=== PATIENT | female | born 1995 | race Caucasian/White ===

== ENCOUNTER 2022-02-06 16:41 | Observation (INO) ==
[2022-02-06 18:19] LABS: Basophils # 0.1 K/mcL (0.0-0.2); Basophils % 0.8 %; Eosinophils # 0.2 K/mcL (0.0-0.6); Eosinophils % 1.3 %; Hematocrit 48.5 % (35.3-44.9); Hemoglobin 16.1 g/dL (11.5-15.4); Immature Granulocytes % 0.3 % (0-4); Lymphocytes # 2.7 K/mcL (0.6-4.6); Lymphocytes % 18.7 %; Mean Corpuscular HGB Conc 33.2 g/dL (31.6-35.5); Mean Corpuscular Hemoglobin 29.5 pg (28.0-33.3); Mean Platelet Volume 9.6 fL (9.4-12.4); Monocytes # 0.7 K/mcL (0.0-1.3); Monocytes % 4.9 %; Neutrophils # 10.6 K/mcL (1.6-8.9); Platelet Count 280 K/mcL (140-400); Red Blood Count 5.45 M/mcL (3.82-4.97); White Blood Count 14.4 K/mcL (4.3-11.1)
[2022-02-06 18:23] LABS: Bacteria,Urine Few per hpf (None-Few); Bilirubin,Urine Negative (Negative); Blood,Urine Large (Negative); Clarity,Urine Clear (Clear); Color,Urine Light-Yellow (Yellow); Glucose,Urine (UA) Normal (Normal); Ketones,Urine Negative (Negative); Leukocyte Esterase,Urine Negative (Negative); Nitrite,Urine Positive (Negative); PH,Urine 6.5 pH Units (5.0-8.0); Protein,Urine Negative (Neg-Trace); RBC,Urine 30-50 per hpf (0-3); Specific Gravity,Urine 1.016 (1.010-1.025); Squamous Epithelial Cell,Urine Few per hpf (None-Few); Urobilinogen,Urine Normal (Normal); WBC,Urine 0-3 per hpf (0-3)
[2022-02-06 18:41] LABS: Alanine Aminotransferase 15 Units/L (7-52); Albumin 4.5 g/dL (3.5-5.7); Albumin/Globulin Ratio 1.6 (1.1-2.2); Alkaline Phosphatase 81 Units/L (34-104); Aspartate Amino Transferase 18 Units/L (13-39); BUN/Creatinine Ratio 11 (6-26); Bilirubin,Total 0.3 mg/dL (0.3-1.0); Blood Urea Nitrogen 9 mg/dL (6-20); Calcium 9.9 mg/dL (8.6-10.3); Carbon Dioxide 28 mEq/L (23-29); Chloride 103 mEq/L (98-107); Globulin 2.8 g/dL (2.4-3.5); Glucose 102 mg/dL (70-105); Osmolality,Calculated 283 (280-300); Potassium 3.9 mEq/L (3.5-5.1); Sodium 137 mEq/L (136-145); Total Protein 7.3 g/dL (6.4-8.9)
[2022-02-06] MEDS ORDERED: Ketorolac 30 MG/ML VIAL IVP ONE (21:20)
[2022-02-06] MEDS ORDERED: Acetaminophen IV 1,000 MG/100 ML BAG IVPB ONE ×2 (23:31→23:54)
[2022-02-06] MEDS ORDERED: Famotidine 20 MG/2 ML VIAL IVP ONE (23:31)
[2022-02-06] MEDS ORDERED: Bupivacaine/EPI 1:200k 0.25% 50 ML VIAL ONE (23:32)
[2022-02-06] MEDS ORDERED: *HR* Propofol 200 MG/20 ML VIAL IVP ONE (23:35)
[2022-02-06] MEDS ORDERED: *HR* Midazolam HCl 2 MG/2 ML VIAL ONE (23:35)
[2022-02-06] MEDS ORDERED: *HR* FentaNYL (PF) 100 MCG/2 ML VIAL ONE (23:35)
[2022-02-06] MEDS ORDERED: *HR* Rocuronium Bromide 50 MG/5 ML VIAL ONE (23:36)
[2022-02-06] MEDS ORDERED: Lidocaine -MPF 2% 5 ML VIAL ONE (23:36)
[2022-02-06] MEDS ORDERED: Ondansetron 4 MG/2 ML VIAL ONE (23:36)
[2022-02-06] MEDS ORDERED: CeFAZolin Syr 2,000MG/20 ML 2,000 MG/20 ML SYRINGE IVPB ONE (23:45)
[2022-02-06] MEDS ORDERED: *HR* HYDROmorphone PF 0.5 MG/0.5 ML SYRINGE IVP PRN (23:52)
[2022-02-06] MEDS ORDERED: Ondansetron 4 MG/2 ML VIAL IVP PRN (23:52)
[2022-02-07] MEDS ORDERED: Famotidine 20 MG/2 ML VIAL ONE
[2022-02-07] MEDS ORDERED: Lidocaine HCL 4 ML Topical Solution (Laryng-O-Jet Kit Sterile Pak) TP ONE (00:22)
[2022-02-07] MEDS ORDERED: *HR* FentaNYL (PF) 100 MCG/2 ML VIAL ONE (00:27)
[2022-02-07] MEDS ORDERED: Sugammadex Sodium 200 MG/2 ML VIAL IV ONE (01:01)
[2022-02-07] MEDS ORDERED: *HR* OxyCODONE/APAP 5/325 TABLET PO PRN (02:16)
[2022-02-07] MEDS ORDERED: Ondansetron 4 MG/2 ML VIAL IVP PRN (02:16)
[2022-02-07] MEDS ORDERED: Ringers Solution, Lactated 1,000 ML IVC SCH (02:16)
[2022-02-07] MEDS ORDERED: *HR* HYDROcodone/Acet 5/325 mg TABLET PO PRN (02:16)
[2022-02-07] MEDS ORDERED: Naloxone 0.4 MG/ML INJ IVP PRN (02:16)
[2022-02-07 04:43] VITALS: O2SAT 96
[2022-02-07 05:52] VITALS: BP 112/71; PULSE 86; TEMP 98.3
== END 2022-02-07 07:00 | disposition home or self-care (01) ==
LOC: 1NENUOBS 16:41 → EMEROOARM 16:41 → 1NENUOBS 23:31 → 1NENUPED 02-07 01:58
PROVIDERS: ADMIT Obstetrics & Gynecology; ATTEND Obstetrics & Gynecology